=== PATIENT | female | born 1960 | race Hispanic/Latino ===

== ENCOUNTER → 2019-09-06 | Outpatient (CLI) | payer BC ==
[~2019-09-06] MED LIST: GADODIAMIDE 10 MMOL/20 ML VIAL IV ONE
== END | disposition home or self-care (01) ==
LOC: RAH 10:44
PROVIDERS: ATTEND Neurological Surgery
DX: I67.82 Cerebral ischemia (principal); D33.3 Benign neoplasm of cranial nerves
CPT/HCPCS: 70553; A9579

== ENCOUNTER → 2024-02-05 | Outpatient (CLI) | payer BC ==
[~2024-02-05] MED LIST changes: -GADODIAMIDE 10 MMOL/20 ML VIAL IV ONE; +GADOTERATE MEGLUMINE 10 MMOL/20 ML VIAL IV ONE
--- NOTE | 2024-02-05 14:59 | HMCIMG ---
MR BRAIN AND IACS WWO CON REASON: NEUROMA FU COMPARISON: 09/06/2019 TECHNIQUE: Routine cerebral imaging protocol was performed. Images are also obtained pre and post gadolinium contrast infusion. Additional high-resolution images are obtained of the internal auditory canals before and after contrast. CONTRAST: 15 cc MultiHance 529 IV. FINDINGS: High-resolution internal auditory canal images show a focal mass in the internal auditory canal on the left. This measures 7 x 10 mm. The mass is well-circumscribed and shows diffuse contrast enhancement. 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 The right internal auditory canal appears unremarkable. There is normal appearing brain parenchyma. There are no other focal mass lesions. There are no other areas of abnormal contrast enhancement or abnormal signal intensity. Ventricles and sulci appear normal. Posterior fossa and brainstem structures appear unremarkable. There is no evidence of intracranial hemorrhage. Diffusion-weighted images are negative for an acute ischemic process. There are no abnormal fluid collections. Extracranial soft tissues appear normal as well. IMPRESSION: 1. Focal mass in the left internal auditory canal measuring 7 x 10 mm, well-circumscribed and enhancing, findings are consistent with recurrent or residual acoustic neuroma. 2. Otherwise unremarkable pre and postcontrast MRI brain.
== END | disposition home or self-care (01) ==
LOC: RAH 12:36
PROVIDERS: ATTEND Neurological Surgery
DX: H61.892 Other specified disorders of left external ear (principal); D33.3 Benign neoplasm of cranial nerves
CPT/HCPCS: 70553; A9575